=== PATIENT | male | born 1950 | race Caucasian/White ===

== ENCOUNTER 2016-09-01 19:00 | Outpatient (CLI) | payer OTHER | END 2016-09-01 23:00 | LOC: LAB SRH 19:00 | DX: Z51.81 Encounter for therapeutic drug level monitoring (principal); Z79.01 Long term (current) use of anticoagulants; I48.91 Unspecified atrial fibrillation | CPT/HCPCS: 90074; 94060 ==

== ENCOUNTER 2016-09-29 09:13 | Outpatient (CLI) | payer OTHER | END 2016-09-29 23:00 | LOC: LAB SRH 09:13 | DX: Z51.81 Encounter for therapeutic drug level monitoring (principal); Z79.01 Long term (current) use of anticoagulants; I48.91 Unspecified atrial fibrillation | CPT/HCPCS: 90074; 90100; 90946; 92610; 92690; 93020; 94060; 95059 ==

== ENCOUNTER 2016-10-24 18:16 | Outpatient (CLI) | payer OTHER | END 2016-10-24 23:00 | LOC: LAB SRH 18:16 | DX: Z51.81 Encounter for therapeutic drug level monitoring (principal); Z79.01 Long term (current) use of anticoagulants; I48.91 Unspecified atrial fibrillation; I05.9 Rheumatic mitral valve disease, unspecified | CPT/HCPCS: 90074; 94060 ==

== ENCOUNTER 2016-12-15 18:14 | Outpatient (CLI) | payer OTHER | END 2016-12-15 23:00 | disposition home or self-care (01) | LOC: LAB SRH 18:14 | DX: Z51.81 Encounter for therapeutic drug level monitoring (principal); Z79.01 Long term (current) use of anticoagulants; I05.9 Rheumatic mitral valve disease, unspecified; I48.91 Unspecified atrial fibrillation | CPT/HCPCS: 90074; 94060 ==

== ENCOUNTER 2017-02-02 21:10 | Outpatient (CLI) | payer OTHER | END 2017-02-02 23:00 | LOC: LAB SRH 21:10 | DX: Z79.01 Long term (current) use of anticoagulants (principal); I05.9 Rheumatic mitral valve disease, unspecified; I48.91 Unspecified atrial fibrillation | CPT/HCPCS: 90074; 94060 ==

== ENCOUNTER 2017-02-18 13:37 | Outpatient (CLI) | payer OTHER | END 2017-02-18 23:00 | disposition home or self-care (01) | LOC: LAB SRH 13:37 | DX: Z79.01 Long term (current) use of anticoagulants (principal); I48.91 Unspecified atrial fibrillation; I05.8 Other rheumatic mitral valve diseases | CPT/HCPCS: 90074; 94060 ==